=== PATIENT | female | born 1960 | race Caucasian/White ===

== ENCOUNTER 2017-06-24 01:54 | Emergency (ER) | payer SELFPAY ==
[~2017-06-24] VITALS: Ht 170.2 cm; Wt 68.2 kg
[2017-06-24 02:05] VITALS: BP 120/74
== END 2017-06-24 03:01 | disposition left against medical advice (07) ==
LOC: ED 02:55
DX: F10.129 Alcohol abuse with intoxication, unspecified (principal)
CPT/HCPCS: 99283

== ENCOUNTER 2017-09-09 00:53 | Emergency (ER) | payer OTHER ==
[~2017-09-09] VITALS: Ht 175.3 cm; Wt 62.0 kg
[2017-09-09 05:21] VITALS: BP 126/74
== END 2017-09-09 05:23 | disposition home or self-care (01) ==
LOC: ED 05:10
DX: F10.220 Alcohol dependence with intoxication, uncomplicated (principal)
CPT/HCPCS: 99283